=== PATIENT | female | born 1935 | race Caucasian/White ===

== ENCOUNTER 2022-06-21 10:03 | Outpatient (CLI) | payer MEDICARE, BC | END 2022-06-21 10:04 | disposition home or self-care (01) | LOC: TBSIIMAG 10:03 | PROVIDERS: ATTEND Specialist | DX: M84.48XA Pathological fracture, other site, initial encounter for fracture (principal); M62.9 Disorder of muscle, unspecified | CPT/HCPCS: 72195 ==

== ENCOUNTER 2022-09-20 06:40 | Day surgery (SDC) | payer MEDICARE, BC ==
[2022-09-20] MEDS ORDERED: Lidocaine 1% MPF 2 ML VIAL ONE (07:19)
[2022-09-20] MEDS ORDERED: Iopamidol 30 ML ONE (08:25)
[2022-09-20] MEDS ORDERED: Indomethacin 50 MG SUPP ONE (08:25)
[2022-09-20] MEDS ORDERED: Fentanyl 250 MCG/5 ML VIAL ONE (08:30)
[2022-09-20] MEDS ORDERED: Ondansetron PF 4 MG/2 ML Vial ONE (08:52)
[2022-09-20] MEDS ORDERED: Succinylcholine 200 MG/10 ml SYRINGE FS ONE (08:52)
[2022-09-20] MEDS ORDERED: Lidocaine 1% PF 5 ML VIAL ONE (08:52)
[2022-09-20] MEDS ORDERED: PROPOFOL 200 MG/20 ML VIAL ONE (08:52)
[2022-09-20] MEDS ORDERED: ePHEDrine Sulfate 50 MG/10 ML VIAL ONE (08:52)
[2022-09-20] MEDS ORDERED: Dexamethasone 20 MG/5 ML VIAL ONE (08:52)
== END 2022-09-20 12:20 | disposition home or self-care (01) ==
LOC: SDC 06:40
PROVIDERS: ATTEND Internal Medicine
PROC: 0FC98ZZ Extirpation of Matter from Common Bile Duct, Via Natural or Artificial Opening Endoscopic (ICD-10-PCS; principal; 2022-09-20)
DX: K80.50 Calculus of bile duct without cholangitis or cholecystitis without obstruction (principal)
CPT/HCPCS: 74330; J1100; J2405; J2704; J3010; Q9967